=== PATIENT | female | born 1995 | race Caucasian/White ===

== ENCOUNTER 2017-07-11 20:35 | Emergency (ER) | payer OTHER ==
[2017-07-11 20:46] VITALS: BP 129/80; PULSE 90; TEMP 99.2; BMI 28.3
[2017-07-11] MEDS ORDERED: SULFAMETHOXAZOLE/TRIMETHOPRIM 800MG/160MG D.S. TABLET PO STA (20:53)
--- NOTE | 2017-07-11 20:55 | PDOC ---
History of Present Illness - General History Source: Patient Exam Limitations: No Limitations - History of Present Illness Initial Comments: 07/11/17 20:49 A portion of this note was documented by scribe services under my direction. I have reviewed the details of the note, within reason, and agree with the documentation. The case summary and management plan written by me. Assessment and plan: This is a 21-year-old female who comes in complaining of a tender swollen lymph node on her left submandibular area. Patient's exam was otherwise normal with exception of some very mild erythema of her posterior oropharynx. Patient will be started on Bactrim DS to cover MRSA and likely organisms. Patient instructed to follow-up with her primary care Dr. if not improved in 72 hours or return for reevaluation if symptoms worsen <Bryant Chiu I - Last Filed: 07/11/17 20:49> - History of Present Illness Initial Comments: 07/11/17 21:29 Patient is a 21 year old female with a significant past medical history of who presents to the ED with complaints of left sided neck swelling that began that began 2 days ago. Patient reports noticing left sided neck swelling began 2 days ago suddenly while at home. She reports experiencing left sided neck pain secondary swelling. Patient reports experiencing sore throat and left ear pain secondary to left sided neck pain. She reports taking pain reliever medication with slight relief, but does not state what type. Denies fever, chills. Denies nausea, vomiting. Denies chest pain, SOB. Denies headache, dizziness. Denies change in vision, blurred vision. Denies contact with sick individuals, out of state travel. Allergies : None Social history: No smoking. No alcohol. Surgical history PMD: Adult ROS General: No fevers or chills, no weakness, no weight loss HEENT: +Left sided submandibular pain. +Sore throat. +Left sided ear pain. No change in vision. CardioVascular: No chest pain or shortness of breath Respiratory:No cough, or wheezing. Gastrointestinal: no nausea, vomiting, diarrhea or constipation, No rectal bleeding Genitourinary: No dysuria, hematuria, or frequency Musculoskeletal: No joint or muscle pain or swelling Neurologic: No headache, vertigo, dizziness or loss of consciousness Psychiatric: nor depression Skin: No rashes or easy bruising Endocrine: no increased thirst or abnormal weight change Allergic: no skin or latex allergy All other systems reviewed and normal Basic PE GENERAL: The patient is awake, alert, and fully oriented, in no acute distress. HEAD: Normal with no signs of trauma. EYES: Pupils equal, round and reactive to light, extraocular movements intact, sclera anicteric, conjunctiva clear. EARS: +External ear canal mild amount of saruman. THROAT: +Posterior oral pharynx mild erythema.. No exudates. NECK: +Enlarged tender left sided lymph node just below angle of jaw. No overlying erythema. EXTREMITIES: Normal range of motion, no edema. NEUROLOGICAL: Normal speech, normal gait. PSYCH: Normal mood, normal affect. SKIN: Warm, Dry, normal turgor, no rashes or lesions noted. <Sampson Marie - Last Filed: 07/11/17 21:31> - General Chief Complaint: Pain Stated Complaint: LEFT CHEEK PAIN & SWELLING Time Seen by Provider: 07/11/17 20:40 Past History - Past Medical History COPD: No - Immunization History Immunization Up to Date: Yes - Suicide/Smoking/Psychosocial Hx Smoking History: Never smoked Hx Alcohol Use: No Drug/Substance Use Hx: No Substance Use Type: None <Bryant Chiu I - Last Filed: 07/11/17 20:49> <Sampson Marie - Last Filed: 07/11/17 21:31> - Past Medical History Allergies/Adverse Reactions: Allergies Allergy/AdvReac Type Severity Reaction Status Date / Time No Known Allergies Allergy Verified 07/11/17 20:40 Home Medications: Ambulatory Orders Norethindrone-E.estradiol-Iron [Loestrin Fe 1-20 Tablet] 1 each PO DAILY Sulfamethoxazole/Trimethoprim [Bactrim DS -] 1 tab PO BID #14 tablet 07/11/17 *Physical Exam - Vital Signs Last Vital Signs Temp Pulse Resp BP Pulse Ox 99.2 F 90 16 129/80 98 07/11/17 20:39 07/11/17 20:39 07/11/17 20:39 07/11/17 20:39 07/11/17 20:39 <Bryant Chiu I - Last Filed: 07/11/17 20:49> - Vital Signs Last Vital Signs Temp Pulse Resp BP Pulse Ox 99.2 F 90 16 129/80 98 07/11/17 20:39 07/11/17 20:39 07/11/17 20:39 07/11/17 20:39 07/11/17 20:39 <Sampson Marie - Last Filed: 07/11/17 21:31> ED Treatment Course - Medications Given in the ED: ED Medications Discontinued Medications Generic Name Dose Route Start Last Admin Trade Name Nancy PRN Reason Stop Dose Admin Trimethoprim/Sulfamethoxazole 1 each 07/11/17 20:53 07/11/17 21:00 Bactrim Ds - PO 07/11/17 20:54 1 each ONCE STA Administration <Sampson Marie - Last Filed: 07/11/17 21:31> *DC/Admit/Observation/Transfer - Discharge Dispostion Admit: No <Bryant Chiu I - Last Filed: 07/11/17 20:49> - Attestations Scribe Attestion: 07/11/17 21:31 Documentation prepared by Sampson Marie, acting as medical terminologist for Bryant Chiu MD/DO. <Sampson Marie - Last Filed: 07/11/17 21:31> Diagnosis at time of Disposition: Lymphadenitis, acute - Discharge Dispostion Disposition: HOME Condition at time of disposition: Good - Prescriptions Prescriptions: Sulfamethoxazole/Trimethoprim [Bactrim DS -] 1 tab PO BID #14 tablet - Referrals Referrals: Stuart Walker MD [Primary Care Provider] - - Patient Instructions Additional Instructions: Take Bactrim 1 tablet twice a day for the next 7 days Follow-up with your doctor in 72 hours if not improved. Or return to the ER if you develop a fever or worsening symptoms over the next 24-48 hours. Return to the emergency department immediately with ANY new, persistent or worsening symptoms. Continue any medications as previously prescribed by your physician. You should follow up with your primary doctor as soon as possible regarding today's emergency department visit. . Please make sure your doctor reviews the results of your emergency evaluation. Thank you for coming to the Emergency Department today for your care. It was a pleasure to see you today. Please note that your evaluation is INCOMPLETE until you follow-up with your doctor. - Post Discharge Activity
[2017-07-11] MEDS ORDERED: SULFAMETHOXAZOLE/TRIMETHOPRIM 800MG/160MG D.S. TABLET ONE (20:57)
== END 2017-07-11 21:13 | disposition home or self-care (01) ==
LOC: FER 20:35
DX: L04.9 Acute lymphadenitis, unspecified (principal)
CPT/HCPCS: 99281-25

== ENCOUNTER 2018-11-21 19:36 | Emergency (ER) | payer OTHER ==
[2018-11-21 19:43] VITALS: BP 124/83; PULSE 110; TEMP 100.1; BMI 30.9
--- NOTE | 2018-11-21 19:46 | PDOC ---
History of Present Illness - History of Present Illness Initial Comments: The patient is a 23 year old female, with a significant PMH of scoliosis, who presents to the emergency department today complaining of generalized weakness, sore throat, chills, and fever for 2 days. Patient reports feeling diffusely weak yesterday upon waking up. She notes that later in the day her throat began to hurt. Patient endorses chills during the day yesterday, which transitioned into a subjective fever by nighttime. She does report a mild, non-productive cough, but denies having a runny nose. Patient confirms a sick contact at home, stating that her mom had the flu two weeks ago. 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 The patient denies chest pain, shortness of breath, headache and dizziness. Denies nausea, vomit, diarrhea and constipation. Denies dysuria, frequency, urgency and hematuria. Allergies: NKA Past surgical history: None reported Social history: No reported PCP: Follows up with physicians at [facility] (Not on Staff) 11/21/18 20:02 <Marta Burgos - Last Filed: 11/21/18 20:04> <Angella Farias - Last Filed: 11/21/18 20:25> - General Chief Complaint: Cold Symptoms Stated Complaint: FEVER/CHILLS Time Seen by Provider: 11/21/18 19:45 Past History <Marta Burgos - Last Filed: 11/21/18 20:04> - Past Medical History COPD: No - Immunization History Immunization Up to Date: Yes - Suicide/Smoking/Psychosocial Hx Smoking History: Unknown if ever smoked Have you smoked in the past 12 months: No Number of Cigarettes Smoked Daily: 0 Information on smoking cessation initiated: No Hx Alcohol Use: No Drug/Substance Use Hx: No Substance Use Type: None <Angella Farias - Last Filed: 11/21/18 20:25> - Past Medical History Allergies/Adverse Reactions: Allergies Allergy/AdvReac Type Severity Reaction Status Date / Time No Known Allergies Allergy Verified 07/11/17 20:40 Home Medications: Ambulatory Orders Norethindrone-E.estradiol-Iron [Loestrin Fe 1-20 Tablet] 1 each PO DAILY Sulfamethoxazole/Trimethoprim [Bactrim DS -] 1 tab PO BID #14 tablet 07/11/17 Review of Systems - Review of Systems Comments:: GENERAL/CONSTITUTIONAL: +Subjective fever. +Chills. +Generalized weakness. HEAD, EYES, EARS, NOSE AND THROAT: +Sore throat. No change in vision. No ear pain or discharge. CARDIOVASCULAR: No chest pain or shortness of breath. RESPIRATORY: +Mild non-productive cough. No wheezing, or hemoptysis. GASTROINTESTINAL: No nausea, vomiting, diarrhea or constipation. GENITOURINARY: No dysuria, frequency, or change in urination. MUSCULOSKELETAL: No joint or muscle swelling or pain. No neck or back pain. SKIN: No rash NEUROLOGIC: No headache, vertigo, loss of consciousness, or change in strength/ sensation. ENDOCRINE: No increased thirst. No abnormal weight change. HEMATOLOGIC/LYMPHATIC: No anemia, easy bleeding, or history of blood clots. ALLERGIC/IMMUNOLOGIC: No hives or skin allergy. 11/21/18 20:02 <Marta Burgos - Last Filed: 11/21/18 20:04> *Physical Exam - Vital Signs Last Vital Signs Temp Pulse Resp BP Pulse Ox 100.1 F H 110 H 14 124/83 100 11/21/18 19:39 11/21/18 19:39 11/21/18 19:39 11/21/18 19:39 11/21/18 19:39 - Physical Exam Comments: GENERAL: Awake, alert, and fully oriented, in no acute distress HEAD: No signs of trauma EYES: PERRLA, EOMI, sclera anicteric, conjunctiva clear ENT: +Throat is mildly erythematous. Auricles normal inspection, hearing grossly normal, nares patent, oropharynx clear without exudates. Moist mucosa. TM normal. Uvula is midline. NECK: Normal ROM, supple, no lymphadenopathy, JVD, or masses LUNGS: Breath sounds equal, clear to auscultation bilaterally. No wheezes, and no crackles HEART: +Slightly tachycardic. Regular rhythm, normal S1 and S2, no murmurs, rubs or gallops ABDOMEN: +Mild diffuse tenderness to palpation. Soft, normoactive bowel sounds. No guarding, no rebound. No masses EXTREMITIES: Normal range of motion, no edema. No clubbing or cyanosis. No cords, erythema, or tenderness NEUROLOGICAL: Cranial nerves II through XII grossly intact. Normal speech, normal gait SKIN: Warm, Dry, normal turgor, no rashes or lesions noted. 11/21/18 20:03 <Marta Burgos - Last Filed: 11/21/18 20:04> - Vital Signs Last Vital Signs Temp Pulse Resp BP Pulse Ox 100.1 F H 110 H 14 124/83 100 11/21/18 19:39 11/21/18 19:39 11/21/18 19:39 11/21/18 19:39 11/21/18 19:39 <Angella Farias - Last Filed: 11/21/18 20:25> Medical Decision Making - Medical Decision Making 11/21/18 20:22 Pt presents to the ED complaining of sore throat, myalgias and chills. Works in a day care center. Strep negative. Symptoms are consistent with viral syndrome. Will discharge home. <Angella Farias - Last Filed: 11/21/18 20:25> *DC/Admit/Observation/Transfer - Attestations Scribe Attestion: Documentation prepared by SORAYA Leija, acting as medical center manager for Angella Farias MD. 11/21/18 20:03 <Marta Burgos - Last Filed: 11/21/18 20:04> - Discharge Dispostion Decision to Admit order: No <Angella Farias - Last Filed: 11/21/18 20:25> Diagnosis at time of Disposition: Pharyngitis Qualifiers: Pharyngitis/tonsillitis etiology: unspecified etiology Qualified Code(s): J02.9 - Acute pharyngitis, unspecified - Discharge Dispostion Disposition: HOME Condition at time of disposition: Good - Referrals Referrals: Stuart Walker MD [Primary Care Provider] - - Patient Instructions Printed Discharge Instructions: DI for Viral Upper Respiratory Infection -- Adult Additional Instructions: you came to the ED for a sore throat. Your strep test was negative. You should take motrin or tylenol for fever and pain, and drink plenty of fluids. Make sure that you get plenty of rest. you should not return to work at the day care until your fever has been gone for 24 hours. - Post Discharge Activity Forms/Work/School Notes: Back to Work
== END 2018-11-21 20:29 | disposition home or self-care (01) ==
LOC: FER 19:36
DX: J02.9 Acute pharyngitis, unspecified (principal); M41.9 Scoliosis, unspecified
CPT/HCPCS: 87070; 87880; 99282-25